=== PATIENT | female | born 1990 ===

== ENCOUNTER 2022-05-20 13:58 | Outpatient (CLI) | payer OTHER | END 2022-05-20 15:01 | disposition home or self-care (01) | LOC: PRENATAL 13:58 | PROVIDERS: ATTEND Obstetrics & Gynecology Maternal & Fetal Medicine | DX: O36.80X0 Pregnancy with inconclusive fetal viability, not applicable or unspecified (principal); Z36.0 Encounter for antenatal screening for chromosomal anomalies; Z3A.12 12 weeks gestation of pregnancy ==

== ENCOUNTER 2022-07-19 13:16 | Outpatient (CLI) | payer OTHER | END 2022-07-19 14:45 | disposition home or self-care (01) | LOC: PRENATAL 13:16 | PROVIDERS: ATTEND Obstetrics & Gynecology Maternal & Fetal Medicine | DX: O35.0XX0 Maternal care for (suspected) central nervous system malformation in fetus, not applicable or unspecified (principal); O35.3XX0 Maternal care for (suspected) damage to fetus from viral disease in mother, not applicable or unspecified ==